=== PATIENT | male | born 1990 | race Hispanic/Latino ===

== ENCOUNTER → 2023-12-31 | Outpatient (CLI) | payer OTHER, SELFPAY ==
--- NOTE | 2023-12-31 | DI.RAD.S_ITS ---
PROCEDURE: XR CERVICAL SPINE 2V OR 3V INDICATIONS: BACK PAIN TECHNIQUE: 3 view(s) of the cervical spine were acquired. COMPARISON: [facility], CR, XR LUMBAR SPINE 2-3V, 12/31/2023, 12:30. [facility], CR, XR THORACIC SPINE 2V, 12/31/2023, 12:30. FINDINGS: Bones: No fractures or dislocations to the T1 level. Loss of lordosis which could be related to muscle spasm, rigidity or simply positional. The lateral masses of C1 appear intact on the odontoid view. No suspicious bony lesions. Soft tissues: No prevertebral soft tissue swelling. IMPRESSION: Loss of lordosis; otherwise unremarkable cervical spine series. Dictated by: Ezequiel Mensah [facility] Interpreted: Chad Lorenzo MD on 12/31/2023 at 13:02 Approved by: Chad Lorenzo M.D. on 01/10/2024 at 8:04
--- NOTE | 2023-12-31 | DI.RAD.S_ITS ---
PROCEDURE: XR LUMBAR SPINE 2-3V INDICATIONS: BACK PAIN TECHNIQUE: 3 views of the lumbar spine were acquired. COMPARISON: [facility], CR, XR THORACIC SPINE 2V, 12/31/2023, 12:30. FINDINGS: Bones: 5 [id number] vertebrae are present. 3 mm retrolisthesis L2-L3 and L3-L4.. No vertebral body compression fractures. No suspicious bony lesions. Soft tissues: Overlying bowel gas pattern is normal. No suspicious soft tissue calcifications. IMPRESSION: Grade 1 retrolisthesis L2-L3 and L3-L4; otherwise unremarkable lumbar spine series. Dictated by: Ezequiel Mensah [facility] Interpreted: Chad Lorenzo MD on 12/31/2023 at 13:00 Transcribed by: ROBERT on 12/31/2023 at 13:01 Approved by: Chad Lorenzo M.D. on 01/10/2024 at 8:04
--- NOTE | 2023-12-31 | DI.RAD.S_ITS ---
PROCEDURE: XR THORACIC SPINE 2V INDICATIONS: BACK PAIN TECHNIQUE: 3 views of the thoracic spine were acquired. COMPARISON: None. FINDINGS: Bones: No fractures or dislocations. No suspicious bony lesions. 12 pairs of ribs are noted, and appear intact where visualized. Trace dextrocurvature centered at the T5 level. Soft tissues: No paravertebral stripe thickening. IMPRESSION: Trace dextrocurvature; otherwise unremarkable T-spine. Dictated by: Ezequiel Mensah [facility] Interpreted: Chad Lorenzo MD on 12/31/2023 at 13:01 Approved by: Chad Lorenzo M.D. on 01/10/2024 at 8:04
== END ==
LOC: RAD 10:29
PROVIDERS: Referring Provider Chiropractor; Visit Provider Chiropractor
DX: M13.80 Other specified arthritis, unspecified site (principal); M43.16 Spondylolisthesis, lumbar region
CPT/HCPCS: 72040; 72070; 72100